=== PATIENT | male | born 1940 | race Caucasian/White ===

== ENCOUNTER → 2021-12-05 | Outpatient (CLI) | payer OTHER ==
[~2021-12-05] MED LIST: ASPIRIN CHEWABL81 MG PO; COREG12.5 MG PO; DYAZIDE 37.5/251 EA PO; ELIQUIS2.5 MG PO; ELIQUIS5 MG PO; FISH OIL 1,0001 EAC1 PO; IMDUR ER TAB 6060 MG PO; METAMUCIL PACK3.4 GM PO; NAPROSYN500 MG PO; NORVASC 5 MG TAB5 MG PO; PRAVACHOL40 MG PO; SALINE NOSE SPR45 ML INH; SINGULAIR10 MG PO; SYNTHROID75 MCG PO; VALIUM 5 MG TAB5 MG PO
== END ==
LOC: ECHO 11:43
DX: I35.0 Nonrheumatic aortic (valve) stenosis (principal); R01.1 Cardiac murmur, unspecified; I35.1 Nonrheumatic aortic (valve) insufficiency
CPT/HCPCS: ECHO; 93306